=== PATIENT | male | born 1985 | race Two or more races ===

== ENCOUNTER 2018-11-16 16:50 | Emergency (ER) | payer OTHER ==
[~2018-11-16] VITALS: Ht 175.3 cm; Wt 103.9 kg
--- NOTE | 2018-11-16 16:52 | NUR ---
[id number], PT C/O SOB, WEAKNESS, "FEELING ANXIOUS" VOMITED X1. BG 129, HR 121 [employer]. TO ER BED 6, HOOKED TO MONITOR, CHANGED TO GOWN, AWAITING MD ASHER,
--- NOTE | 2018-11-16 17:14 | NUR ---
MICHELLE QUIROZ AT BEDSIDE
[2018-11-16 17:25] LABS: BASOPHILS # (AUTO) 0.1 /CMM (0.0-0.2); BASOPHILS % (AUTO) 0.5 % (0.0-2.0); HEMATOCRIT 46 % (39-51); LYMPHOCYTES # (AUTO) 1.5 /CMM (0.8-4.8); LYMPHOCYTES % (AUTO) 14.4 % (20.0-44.0); MEAN CORPUSCULAR HGB CONC 35 g/dl (31.0-36.0); MEAN CORPUSCULAR VOLUME 89 fL (80-96); MONOCYTES # (AUTO) 0.4 /CMM (0.1-1.30); MONOCYTES % (AUTO) 3.7 % (2.0-12.0); NEUTROPHILS # (AUTO) 8.2 /CMM (1.8-8.9); NEUTROPHILS % (AUTO) 80.4 % (43.0-81.0); PLATELET COUNT (AUTO) 232 /CMM (150-450); RED BLOOD CELL COUNT(AUTO) 5.13 MIL/uL (4.5-6.0); WHITE BLOOD COUNT (AUTO) 10.3 K/uL (4.3-11.0)
[2018-11-16] MEDS ORDERED: IV NS 0.9% 1,000 ML BAG IV ONE (17:30)
[2018-11-16 17:32] LABS: CALCIUM, SERUM 9.5 mg/dL (8.5-10.1); CARBON DIOXIDE 26 mmol/L (21-32); CHLORIDE 106 mmol/L (98-107); GLUCOSE 142 mg/dL (74-106); POTASSIUM 3.5 mmol/L (3.5-5.1); SODIUM SERUM 144 mmol/L (136-145); UREA NITROGEN, BLOOD 17 mg/dL (7-18)
[2018-11-16] MEDS ORDERED: LORAZEPAM INJ 2 MG/ML VIAL ONE (18:00)
[2018-11-16] MEDS ORDERED: LORAZEPAM INJ 2 MG/ML VIAL IV ONE (18:00)
--- NOTE | 2018-11-16 18:41 | NUR ---
IV removed. Catheter intact and site benign. Pressure and 4x4 applied to site. No bleeding noted.Patient discharged to home in stable condition. Written and verbal after care instructions given. Patient verbalizes understanding of instruction.
[2018-11-16 18:43] VITALS: BP 149/90
== END 2018-11-16 18:43 | disposition home or self-care (01) ==
LOC: ER 16:52
DX: R06.02 Shortness of breath (principal); F41.9 Anxiety disorder, unspecified; R11.10 Vomiting, unspecified
CPT/HCPCS: 36415; 71045; 80048; 84484; 85025; 93005; 96361; 96374; 99284; J2060; J7030